=== PATIENT | male | born 1975 ===

== ENCOUNTER 2024-09-01 18:30 | Emergency (ER) | payer SELFPAY ==
--- NOTE | 2024-09-01 18:59 | PC.NURSE ---
patient called for triage without answer in waiting room at this time.
--- NOTE | 2024-09-01 19:12 | PC.NURSE ---
Called again for triage, no answer
== END 2024-09-01 20:44 | disposition left against medical advice (07) ==
LOC: ANHED 20:40
DX: Z53.21 Procedure and treatment not carried out due to patient leaving prior to being seen by health care provider (principal)
CPT/HCPCS: 99199